=== PATIENT | female | born 1950 | race Two or more races ===

== ENCOUNTER 2024-11-04 18:08 | Emergency (ER) | payer OTHER ==
[~2024-11-04] VITALS: Ht 167.6 cm; Wt 60.0 kg
--- NOTE | 2024-11-04 20:39 | DVH ---
CLINICAL HISTORY: NECK PAIN/BR/M54.2-NECK PAIN status post fall 3 weeks ago, C1 fracture TECHNIQUE: CT exam of the cervical spine was performed without intravenous contrast. This exam was pe rformed according to our departmental dose optimization program. Up-to-date CT equipment and radiatio n dose reduction techniques are utilized as appropriate. 15.63 CTDI: 14.55 DLP: 412.39 WID: COMPARISON: CT cervical spine from same day FINDINGS: Grade 1 anterolisthesis at C4-C5 and C5-C6, likely degenerative, otherwise normal cervical alignment. There is chronic degenerative fusion of the left C2-C3 facet joint. The vertebral body heights are m aintained. Mildly displaced fracture of the posterior right C1 ring (series 3, image 24). There is se paration of the anterior C1 ring by distance of 1.1 cm. No other acute cervical spine fracture seen. CPPD is seen with prominent calcification about the odontoid process most pronounced posteriorly wher e it measures 1 cm in thickness on series 605, image 29. There is multilevel degenerative disc diseas e of the cervical spine with multilevel disc space Narrowing Up to moderate at C2-C3 and C6-C7. There is multilevel facet and uncovertebral hypertrophy resulting in multilevel bony neural foraminal sten osis up to severe on the left at C5-C6 and moderate at multiple additional levels. Multilevel disc os teophyte complexes with mild multilevel spinal stenosis, without high-grade appearing spinal stenosis identified. The paraspinous soft tissues are unremarkable. Biapical pleural-parenchymal scarring. IMPRESSION: Fracture of the posterior right C1 ring as well as separation of the anterior C1 ring by distance of 1.1 cm. 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 Critical Result: Right posterior and anterior C1 ring fractures
--- NOTE | 2024-11-04 20:56 | ED.PDOC ---
Ministerio. trauma (HPI) HPI Comments This patient is a 74-year-old female who arrives the ED today for evaluation of a possible C1 fracture sustained three weeks ago. Patient states that three weeks ago she had a mechanical ground level trip and fall incident resulting in injury to her neck. Patient states she went to her primary care provider for evaluation. Patient states she had some form of imaging study that showed the possibility of a C1 fracture. Patient's primary care provider told her to come to the ED immediately for evaluation and management. Patient is able to ambulate. Patient denies any blood loss. Vital signs were stable. Patient was immediately put in a cervical hard collar once she stated there was a possible C1 fracture. Chief Complaint: Neck Pain Time Seen by MD: 18:26 Reviewed notes: Nurses Notes Allergies: Coded Allergies: NO KNOWN ALLERGIES (Unverified , 11/04/24) Information Source: Patient, Friend Mode of Arrival: Ambulatory Severity: Moderate Timing: Weeks Duration: Since onset Prehospital treatment: Pain Meds Location: Neck Location of neck pain: (R) Posterior, (L) Posterior Location of laceration: None Mechanism: Fall Past Medical History PAST MEDICAL HISTORY: Denies Past Medical History (Other): Possible recent C1 fracture Surgical History: Denies all surgeries COOKING CHEF History: No Pertinent COOKING CHEF History Family History Family History: Reviewed,noncontributory to illness, No family hx of Cancer, No family hx of DM, No family hx of Heart jose, No family hx of HTN, No family hx ofKidney jose, No family hx of Liver jose, No family hx of Lung jose, No family hx of Stroke Social History Smoker: Non-Smoker Alcohol: Denies ETOH Use Drugs: Denies Drug Use Lives In: Home Constitutional: denies: chills, diaphoresis, fatigue, fever, malaise, sweats, weakness, others EENTM: denies: blurred vision, double vision, ear bleeding, ear discharge, ear drainage, ear pain, ear ringing, eye pain, eye redness, hearing loss, mouth pain, mouth swelling, nasal discharge, nose bleeding, nose congestion, nose pain, photophobia, tearing, throat pain, throat swelling, voice changes, others Respiratory: denies: cough, hemoptysis, orthopnea, SOB at rest, shortness of breath, SOB with excertion, stridor, wheezing, others Cardiovascular: denies: chest pain, dizzy spells, diaphoresis, Dyspnea on exertion, edema, irregular heart beat, left arm pain, lightheadedness, palpitat ions, PND, syncope, others Gastrointestinal: denies: abdomen distended, abdominal pain, blood streaked bow els, constipated, diarrhea, dysphagia, difficulty swallowing, hematemesis, melena, nausea, poor appetite, poor fluid intake, rectal bleeding, rectal pain, vomiting, others Genitourinary: denies: abnormal vagina bleeding, burning, dyspareunia, dysuria, flank pain, frequency, hematuria, incontinence, pain, , vagina discharge, urgency, others Neurological: denies: dizziness, fainting, headache, left sided numbness, left sided weakness, numbness, paresthesia, pre-existing deficit, right sided numbness, right sided weakness, seizure, speech problems, tingling, tremors, weakness, others Musculoskeletal: reports: neck pain; denies: back pain, gout, joint pain, joint swelling, muscle pain, muscle stiffness, others Integumetry: denies: bruises, change in color, change in hair/nails, dryness, laceration, lesions, lumps, rash, wounds, others Allergic/Immunocompromised: denies: Difficulty Healing, Frequent Infections, Hives, Itching, others Hematologic/Lymphatic: denies: anemia, blood clots, easy bleeding, easy bruising, swollen glands, others Endocrine: denies: excessive hunger, excessive sweating, excessive thirst, excessive urination, flushing, intolerance to cold, intolerance to heat, unexplained weight gain, unexplained weight loss, others Psychiatric: denies: anxiety, bipolar disorder, depression, hopeless, panic di sorder, schizophrenia, sleepless, suicidal, others Physical Exam General Appearance: Moderate Distress ([id number] distress due to cervical spine concerns.), Normal HEENT: Normal ENT Inspection, Pharynx Normal, TMs Normal Neck: Other (Patient was in a hard C-collar time of evaluation.) Respiratory: Chest Non-Tender, Lungs Clear, No Accessory Muscle Use, No Respiratory Distress, Normal Breath Sounds Cardiovascular: No Edema, No JVD, No Murmur, No Gallop, Normal Peripheral Pulses, Regular Rate/Rhythm Breast Exam: Deferred Gastrointestinal: No Organomegaly, Non Tender, No Pulsatile Mass, Normal Bowel Sounds, Soft Genitalia: Deferred Pelvic: Deferred Rectal: Deferred Extremities: Other (Bilateral upper extremity concerns. No weakness displayed globally.) Neurologic: Alert, No Motor Deficits, Normal Affect, Normal Mood, No Sensory Deficits Cerebellar Function: NOT DONE Reflexes: NOT DONE Skin: Dry, Normal Color, Warm Lymphatic: No Adenopathy Was a procedure done? Was a procedure done?: No Differential Diagnosis Multiple Trauma: Other (Cervical vertebrae fracture, cervical muscle strain, cervical radiculopathy) X-Ray, Labs, Meds, VS Vital Signs Date Time Temp Pulse Resp B/P (MAP) Pulse Ox O2 Delivery O2 Flow Rate FiO2 11/04/24 18:09 98.2 85 18 149/55 95 98.2 X-Ray, Labs, Meds, VS Comment All studies performed the ED were evaluated by me personally. CT of the cervical spine confirmed a fracture of the posterior right C1 ring as well as separation of the anterior C1 ring by distal is a 1.1 cm. Multilevel degenerative neural foraminal stenosis up to severe in the left side at C5-C6 and moderate at multiple additional levels. Patient will be transferred to a higher level of care she will require a spinal surgical evaluation. Spoke with a Dr. Crowder at [facility]. Advised her of initial patient presentation as well as imaging study results. She agreed to accept the patient is a transfer. We will contact Radiology to try to secure the stability of the fracture. Prior to actual transfer, our nursing will notify Dr. Keith florez of impending transport. Spoke with the radiologist that read the CT of the neck today. We discussed multiple aspects of the study and she has suggested that the patient is as stable as a C1 fracture can be. Time of 1ST Reevaluation: 20:55 Reevaluation 1ST: Unchanged Consultation: PCP, Surgery Patient Education/Counseling: Diagnosis, Treatment Family Education/Counseling: Diagnosis, Treatment Departure 1 Departure Time of Disposition: 20:56 Impression: Primary Impression: C1 cervical fracture Disposition: 02 SHORT TERM HOSPITAL Condition: Fair Discharged With: Self, Spouse Critical Care Note Critical Care Time?: No Stability Stability form required: No Heart Score Heart Score: Heart Score Response (Comments) Value History N/A 0 EKG N/A 0 Age N/A 0 Risk Factors N/A 0 Troponin N/A 0 Total 0 [employer] PAC Nov 04, 2024 20:56
[2024-11-04 22:55] VITALS: BP 178/72; PULSE 72; RESP 16; TEMP 98.1; O2SAT 99
== END 2024-11-04 23:53 | disposition short-term general hospital (02) ==
LOC: ER 18:08
DX: S12.090A Other displaced fracture of first cervical vertebra, initial encounter for closed fracture (principal); W01.0XXA Fall on same level from slipping, tripping and stumbling without subsequent striking against object, initial encounter; Y93.89 Activity, other specified; Y92.89 Other specified places as the place of occurrence of the external cause; Y99.8 Other external cause status
CPT/HCPCS: 72125; 99285; L0120